=== PATIENT | female | born 1985 | race Caucasian/White ===

== ENCOUNTER 2023-03-20 20:43 | Emergency (ER) | payer OTHER ==
[~2023-03-20] VITALS: Ht 154.9 cm; Wt 81.0 kg
[2023-03-20 21:33] VITALS: O2SAT 100
[2023-03-20] MEDS ORDERED: ACETAMINOPHEN 325MG TABLET PO ONE (22:15)
[2023-03-20] MEDS ORDERED: BENZ100C86 MT (22:20)
[2023-03-20] MEDS ORDERED: TOPUD MT (22:20)
[2023-03-20] MEDS ORDERED: CETI1TAB MT (22:20)
[2023-03-20 22:49] VITALS: BP 108/49; PULSE 79; RESP 16; TEMP 98.8
== END 2023-03-20 23:16 | disposition home or self-care (01) ==
LOC: ER 20:43
DX: J06.9 Acute upper respiratory infection, unspecified (principal); Z98.890 Other specified postprocedural states; Z20.822 Contact with and (suspected) exposure to COVID-19
CPT/HCPCS: 99283; 87426; 81025; 87430; 87804 ×2; C9803